=== PATIENT | female | born 1990 | race Caucasian/White ===

== ENCOUNTER 2021-04-26 12:25 | Inpatient (IN) | payer MEDICAID, OTHER, SELFPAY ==
[2021-04-26] VITALS (11 sets, daily range): BP systolic 109–158; BP diastolic 58–82
[~2021-04-26] VITALS: Ht 162.6 cm; Wt 72.0 kg
[2021-04-26] MEDS ORDERED: LR 1,000 ML IV SCH (13:50)
[2021-04-26] MEDS ORDERED: OXYTOCIN DRIP 30 UNITS in IV 1 EA IV PRN (13:50)
[2021-04-26] MEDS ORDERED: METHYLERGONOVINE MALEATE 0.2 MG/ML VIAL (J2210) IM PRN (13:50)
[2021-04-26] MEDS ORDERED: OXYTOCIN INJ 10 UNITS/ML VIAL (J2590) IM PRN (13:50)
[2021-04-26] MEDS ORDERED: CARBOPROST TROMETHAMINE 250 MCG/ML AMP IM PRN (13:50)
[2021-04-26] MEDS ORDERED: LIDOCAINE 1% MDV 20ML VIAL INFIL PRN (13:50)
[2021-04-26] MEDS ORDERED: OXYTOCIN 30 UNITS IN 0.9% NaCl 500ML IV BAG (J2590) As Ordered ONE (14:00)
[2021-04-26 14:18] LABS: HEMATOCRIT 33.5 % (36.0-47.0); HEMOGLOBIN 11.2 g/dl (12.0-15.5); MEAN CORPUSCULAR HEMOGLOBIN 32.8 pg (27.0-33.0); MEAN CORPUSCULAR HGB CONC 33.4 g/dl (32.0-36.5); MEAN CORPUSCULAR VOLUME 98.2 fl (80.0-96.0); PLATELET COUNT, AUTOMATED 256 10^3/uL (150-450); RED BLOOD COUNT 3.41 10^6/uL (4.00-5.40); WHITE BLOOD COUNT 17.2 10^3/uL (4.0-10.0)
[2021-04-26] MEDS ORDERED: DIBUCAINE 1% OINTMENT 30GM TOP PRN (15:20)
[2021-04-26] MEDS ORDERED: DOCUSATE SODIUM 100MG CAPSULE PO PRN (15:20)
[2021-04-26] MEDS ORDERED: ACETAMINOPHEN TAB 650MG DOSE (2X325MG) PO PRN (15:20)
[2021-04-26] MEDS ORDERED: MEASLES,MUMPS,RUBELLA VACCINE INJ (MMR-II) (90707) SC SCH (15:20)
[2021-04-26] MEDS ORDERED: RHOGAM 300 MCG (1500 IU) INJ (J2790) IM SCH (15:20)
[2021-04-26] MEDS ORDERED: IBUPROFEN 800 MG TAB PO PRN (15:20)
[2021-04-26] MEDS ORDERED: ACETAMINOPHEN 500 MG TAB PO PRN (15:20)
[2021-04-26] MEDS ORDERED: IBUPROFEN 600MG TAB PO PRN (15:20)
[2021-04-26] MEDS ORDERED: METHYLERGONOVINE MALEATE 0.2 MG TAB PO PRN (15:30)
[2021-04-26 15:31] LABS: ALT/SGPT 11 U/L (12-78); BILIRUBIN,TOTAL 0.2 MG/DL (0.2-1.0); CREATININE FOR GFR 0.44 MG/DL (0.55-1.30); GLOMERULAR FILTRATION RATE > 60.0 (>60); LDH LACTATE DEHYDROGENASE 170 U/L (84-246); URIC ACID 3.9 MG/DL (2.6-6.0)
--- NOTE | 2021-04-26 15:39 | HPE ---
HISTORY AND PHYSICAL DATE OF ADMISSION: 04/26/2021 Yadira is a 30-year-old 3, para 2-0-0-2 at 41 weeks gestation, estimated date of confinement (EDC) of 04/19/2021 per her report. Patient presents to labor and delivery with report of onset of uncomfortable contractions at approximately 0830 that have become closer together and more painful. She denies vaginal bleeding and leakage of fluid. The fetus has been active. care was initiated on [place]. She did not transfer her care to this area. She has not been seen in 2 months. course complicated by anemia, B12 deficiency, smoking throughout , and inadequate care. OBSTETRIC HISTORY: Two prior vaginal deliveries, uncomplicated. OBSTETRIC LABORATORY DATA: B positive, antibody screen negative, HIV negative, hepatitis B negative, hepatitis C negative. Gestational diabetic screening 127. GBS is unknown. Noninvasive testing negative for aneuploidy. MEDICAL HISTORY: Anemia. SURGERIES: None. SOCIAL HISTORY: The patient has a partner. He is at bedside and supportive. She denies alcohol and drug use. Denies history of sexual transmitted infections. Denies history of abuse, physical, sexual, and emotional. ALLERGIES: Pollen and METRONIDAZOLE, causing hives. OBJECTIVE: Temperature 97.9, pulse 62, respirations 18, blood pressure (BP) 143/78. She is alert and oriented times three. She does appear uncomfortable with her contractions. heart rate is 115 with moderate variability. Positive accelerations. Negative decelerations. Contractions are every 3-4 minutes. Sterile vaginal exam: 8-9 cm dilated, 100% effaced, +1 station. Abdomen is gravid, cephalic presentation. Estimated weight 6 pounds. ASSESSMENT: Intrauterine at 41 weeks gestation. heart rate category 1, active labor. PLAN: Admit the patient to labor and delivery. IV fluids. Consider assisted rupture of membranes to expedite her labor. I do anticipate a vaginal delivery. Risks, benefits, and alternatives have been reviewed with the patient. Her questions have been answered. They do request assisted rupture of membranes. Delivery imminent.
--- NOTE | 2021-04-26 21:58 | DN ---
DELIVERY NOTE DATE OF DELIVERY: 04/26/2021 TIME OF : 1435 GENDER: Female APGARS: 8 and 9 LACERATIONS: None ANESTHESIA: None ESTIMATED BLOOD LOSS: 500 mL COUNTS: Correct and verified DESCRIPTION OF DELIVERY: Yadira is a 30-year-old 3, para 3-0-0-3 now, who was admitted to labor and delivery in active labor. She coped with her labor physiologically. She had assisted rupture of membranes at 1407. She was fully dilated at 1418. She then pushed to a normal spontaneous vaginal delivery of a live female in the OA position with restitution to ROT position at 1435. There was a nuchal cord x1, this was reduced manually at the time of delivery. shoulders delivered spontaneously and the corpus immediately followed. [place]'s mouth and nares were bulb suctioned due to meconium fluid. She was then placed on the maternal abdomen crying and active. The cord was clamped x2 once pulsations ceased and cut by the father of the baby under my direction. Spontaneous expulsion of an intact placenta with three-vessel cord by Rodriguez mechanism was at 1450. Uterine hemostasis achieved with IV Pitocin rapid infusion and uterine fundal massage. Estimated blood loss 500 mL. Perineum and vagina inspected noted to be intact. [place] female weighed 6 pounds 11 ounces (3030 grams). Apgars 8 and 9. Mom is going to name her daughter Irlanda and she is going formula feed. At the close of delivery, lap counts and instruments counts were correct and verified.
[2021-04-27 01:12] LABS: AMPHETAMINES URINE REFLEX NEGATIVE (NEGATIVE); BARBITURATES URINE REFLEX NEGATIVE (NEGATIVE); BENZODIAZEPINES URINE REFLEX NEGATIVE (NEGATIVE); CANNABINOIDS URINE REFLEX PENDING CONFIRMATION (NEGATIVE); COCAINE METABOLITE URINE REFLE NEGATIVE (NEGATIVE); METHADONE URINE REFLEX NEGATIVE (NEGATIVE); OPIATES URINE REFLEX NEGATIVE (NEGATIVE); PHENCYCLIDINE URINE REFLEX NEGATIVE (NEGATIVE)
[2021-04-27 06:12] VITALS: BP 114/57
[2021-04-27] MEDS: PRENATAL VITAMINS CHEWABLE TABLET PO SCH (09:52)
[2021-04-27 18:00] VITALS: BP 122/61
[2021-04-28 05:50] VITALS: BP 124/58
[2021-04-28] MEDS ORDERED: ACET-683 PO (05:58)
[2021-04-28] MEDS ORDERED: IBUP80TA PO (05:58)
[2021-04-28] MEDS: PRENATAL VITAMINS CHEWABLE TABLET PO SCH (08:05)
[2021-05-02 11:13] LABS: Cannabinoid Positive (.); GC Carboxy THC >300 ng/mL (Cutoff=10)
== END 2021-04-28 16:00 | disposition home or self-care (01) | DRG 560 ==
LOC: M LDO 12:25 → M LDI 13:46 → M OBS 17:02
PROVIDERS: ADMIT Advanced Practice Midwife; ATTEND Advanced Practice Midwife
PROC: 10E0XZZ Delivery of Products of Conception, External Approach (ICD-10-PCS; principal; 2021-04-26)
PROC: 10907ZC Drainage of Amniotic Fluid, Therapeutic from Products of Conception, Via Natural or Artificial Opening (ICD-10-PCS; 2021-04-26)
DX: O48.0 Post-term pregnancy (principal); Z3A.41 41 weeks gestation of pregnancy; Z37.0 Single live birth; O99.02 Anemia complicating childbirth; D64.9 Anemia, unspecified; O99.334 Smoking (tobacco) complicating childbirth; F17.210 Nicotine dependence, cigarettes, uncomplicated; O09.33 Supervision of pregnancy with insufficient antenatal care, third trimester; O69.81X0 Labor and delivery complicated by cord around neck, without compression, not applicable or unspecified; O77.0 Labor and delivery complicated by meconium in amniotic fluid